=== PATIENT | male | born 1955 | race Caucasian/White ===

== ENCOUNTER → 2024-01-03 | Outpatient (CLI) | payer MEDICARE, OTHER ==
--- NOTE | 2024-01-03 19:07 | US ---
EXAMINATION TYPE: US kidneys/renal and bladder DATE OF EXAM: 01/03/2024 COMPARISON: NONE CLINICAL INDICATION: Male, 68 years old with history of N18.9 CKD; EXAM MEASUREMENTS: Right Kidney: 9.7 x 4.7 x 4.4 cm Left Kidney: 9.2 x 5.2 x 4.6 cm Right Kidney: No hydronephrosis or masses seen Left Kidney: No hydronephrosis or masses seen Bladder: wnl Bilateral Jets seen: no There is no evidence for hydronephrosis at this point in time. No nephrolithiasis is seen. No gilbert s are identified. The urinary bladder is anechoic. Bilateral ureteral jets are seen. Cortical medullary differentiation is maintained. IMPRESSION: 1. No evidence for obstructive uropathy. 2. Cortical medullary differentiation is maintained.
== END | disposition home or self-care (01) ==
LOC: RADUSWWP 15:40
PROVIDERS: ATTEND Internal Medicine
DX: N18.9 Chronic kidney disease, unspecified (principal)
CPT/HCPCS: 76770

== ENCOUNTER → 2024-03-03 | Outpatient (CLI) | payer MEDICARE, OTHER ==
[2024-03-03 15:54] LABS: HCT 41.3 % (39.6-50.0); HGB 13.4 g/dL (13.0-17.0); MCH 32.8 pg (27.0-32.0); MCHC 32.4 g/dL (32.0-37.0); MCV 101.2 FL (80.0-97.0); Mean Platelet Volume 10.6 FL (9.5-12.2); NRBC Per 100 WBC 0 X 10*3/uL (0.00-0.01); Platelet Count 280 X 10*3/uL (140-440); RBC 4.08 X 10*6/uL (4.40-5.60); RDW 13.3 % (11.5-14.5); WBC 6.58 X 10*3/uL (4.50-10.00)
[2024-03-03 16:19] LABS: ALT 14 U/L (10-49); AST 17 U/L (14-35); Albumin 4.6 g/dL (3.8-4.9); Albumin/Globulin Ratio 1.77 Ratio (1.60-3.17); Alkaline Phosphatase 60 U/L (41-126); BUN/Creat Ratio 19.27 Ratio (12.00-20.00); Blood Urea Nitrogen 21.2 mg/dL (9.0-27.0); Calcium 9.3 mg/dL (8.7-10.3); Carbon Dioxide 24.6 mmol/L (21.6-31.8); Chloride 104 mmol/L (96-109); Globulin 2.6 g/dL (1.6-3.3); Glucose 111 mg/dL (70-110); Magnesium 2.5 mg/dL (1.5-2.4); Potassium 4.5 mmol/L (3.5-5.5); Sodium 139 mmol/L (135-145); Total Bilirubin 0.6 mg/dL (0.3-1.2); Total Protein 7.2 g/dL (6.2-8.2)
== END | disposition home or self-care (01) ==
LOC: LABWHC1 09:57
PROVIDERS: ATTEND Internal Medicine
DX: N18.31 Chronic kidney disease, stage 3a (principal)
CPT/HCPCS: 36415; 80053; 83735; 84100; 85027